=== PATIENT | male | born 1960 | race Caucasian/White ===

== ENCOUNTER 2023-07-18 18:56 | Emergency (ER) | payer MEDICARE ==
[2023-07-18 19:08] VITALS: TEMP 98.4
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
[2023-07-18 21:02] VITALS: O2SAT 99
[2023-07-18] MEDS ORDERED: MORPHINE SULFATE 4 MG INJ ONE (21:05)
[2023-07-18] MEDS ORDERED: Zofran 4 MG/2 ML VIAL ONE (21:05)
[2023-07-18] MEDS: Zofran 4 MG/2 ML VIAL IV ONE (21:09)
[2023-07-18] MEDS: MORPHINE SULFATE 4 MG INJ IV ONE (21:10)
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
[2023-07-18] MEDS ORDERED: NORCO 5/325 MG ONE (22:00)
[2023-07-18] MEDS: NORCO 5/325 MG PO ONE (22:03)
[2023-07-18 22:05] VITALS: BP 99/58; RESP 17
[2023-07-18 22:06] VITALS: PULSE 88
== END 2023-07-18 22:12 | disposition home or self-care (01) ==
LOC: ED 18:56
DX: S22.42XA Multiple fractures of ribs, left side, initial encounter for closed fracture (principal); V10.4XXA Pedal cycle driver injured in collision with pedestrian or animal in traffic accident, initial encounter; Y93.55 Activity, bike riding; E11.42 Type 2 diabetes mellitus with diabetic polyneuropathy; Z79.85 Long-term (current) use of injectable non-insulin antidiabetic drugs; Z79.891 Long term (current) use of opiate analgesic; Z79.899 Other long term (current) drug therapy
CPT/HCPCS: 36000; 70450; 71250; 72125; 96374; 96375; 99284; J2270; J2405; A9270-GY